=== PATIENT | male | born 1970 | race Caucasian/White ===

== ENCOUNTER 2017-06-13 17:44 | Emergency (ER) | payer SELFPAY ==
[~2017-06-13] VITALS: Ht 175.3 cm; Wt 108.9 kg
--- NOTE | ~2017-06-13 | CT71 ---
[facility]. [facility] A Service of [facility] & [facility] RADIOLOGY TEXT RESULTS PATIENT: CEM PENA LOCATION: SED : 70 UNIT #: [id number] AGE: [address]: ONESIMO GIBSON SEX: M ORDER DR: [id number] [place] [id number] E MR#: [id number] Acc #: [id number] NAME: CEM PENA : 1970 SEX: M STUDY DATE/TIME: 06/13/2017 18:35 UNIT: SED ROOM: STUDY DESCRIPTION: CT Head Wo Contrast Attending Physician: Onesimo Gibson Ordering Physician: Onesimo Gibson Primary Care Physician: Anna Marie Llamas A.P.R.N. MEDICAL IMAGING REPORT This report is preliminary unless electronic signature is present. EXAM Head CT without contrast, 06/13/2017. HISTORY Dizziness and vomiting and frontal headache for 2 days. FINDINGS Axial noncontrast images were obtained from the skull base to the vertex. This CT exam was performed with one or more of the following radiation dose reduction techniques: automatic exposure control, adjustment of mA and/or kV according to patient size, and iterative reconstruction. Ventricular size and configuration are normal. There is no evidence of acute infarct or hemorrhage. There are no extraaxial fluid collections. No mass lesion or mass effect is seen. There are no skull fractures. IMPRESSION Normal noncontrast head CT. Dictated by... Fausto Jimenez M.D. THIS IS AN ELECTRONICALLY VERIFIED REPORT Fausto Jimenez M.D. at 06/14/2017 2:16 PM KRT/talon TD: 06/14/2017 09:47 JOB #: [id number] MEDICAL IMAGING REPORT Page 1 of 1
--- NOTE | ~2017-06-13 | EKG ---
PATIENT: CEM PENA UNIT #: [id number] Ventricular Rate: 55 BPM Atrial Rate: 55 BPM P-R Interval: 174 ms QRS Duration: 78 ms Q-T Interval: 428 ms QTC Calculation(Bezet): 409 ms P Dacono: 55 degrees Calculated R [place]acono: 17 degrees Calculated T Dacono: 33 degrees Diagnosis Line: Sinus bradycardia Diagnosis Line: Otherwise normal ECG Diagnosis Line: When compared with ECG of 29-MAY-2014 20:15, Diagnosis Line: No significant change was found Diagnosis Line: Confirmed by GALA DAS MD ([id number]) on Diagnosis Line: 06/15/2017 8:23:37 AM INTERPRETING MD: THIAGO BLANK
--- NOTE | ~2017-06-13 | CT17 ---
[facility] A Service of [facility] RADIOLOGY TEXT RESULTS PATIENT: CEM PENA LOCATION: SED : [birth year] UNIT #: [id number] AGE: [address]: ONESIMO GIBSON SEX: M ORDER DR: [id number] [place] [id number] E MR#: [id number] Acc #: [id number] NAME: CEM PENA : 1970 SEX: M STUDY DATE/TIME: 06/13/2017 19:10 UNIT: SED ROOM: STUDY DESCRIPTION: CT Angio Head Attending Physician: Onesimo Gibson Ordering Physician: Onesimo Gibson Primary Care Physician: Anna Marie Llamas A.P.R.N. MEDICAL IMAGING REPORT This report is preliminary unless electronic signature is present. EXAM CT angiogram head and neck. HISTORY Dizziness and vomiting for two days. COMMENTS CT angiography of the head and neck vessels performed during the intravenous administration of 100 mL of Isovue 370 with imaging acquired in the axial plane followed by multiple reconstructed and reformatted images for the purpose of 3-D CT angiography of the head and neck vessels. This CT exam was performed with one or more of the following radiation dose reduction techniques: automatic exposure control, adjustment of mA and/or kV according to patient size, and iterative reconstruction. COMPARISON There is an earlier head CT. FINDINGS CT angiogram neck: There is origin of the left vertebral artery from the aortic arch. There is no hemodynamically significant narrowing suspected of great vessel origins form the arch. By NASCET criteria 0% stenosis at the right carotid bifurcation. The right carotid system is widely patent. There is some kinking/tortuosity of the cervical internal carotid artery on the right. By NASCET criteria there is 0% stenosis at the left carotid bifurcation and then there is some kinking/tortuosity of the left internal carotid artery mid portion cervical. Bilaterally the carotid siphons are widely patent. Left vertebral artery is patent through the neck and contributes to be basilar. The right vertebral artery is patent thought the neck and [facility] A Service [facility] RADIOLOGY TEXT RESULTS PATIENT: CEM PENA LOCATION: [place] : [birth year] UNIT #: [id number] AGE: [address]: ONESIMO GIBSON SEX: M ORDER DR: contributes to the basilar. The vertebral system is fairly codominant. Evaluation of the intracranial circulation shows no intracranial vascular cutoff. No focal central stenosis. There is an anterior communicating artery present. No posterior communicator of significant size is seen on either side. No intracranial aneurysm is suspected allowing for the technical limitation CT angiography for evaluation of granulation at the level of the skull base. Dural venous sinuses are grossly patent. IMPRESSION 1. By NASCET criteria 0% stenosis is suspected at either carotid bifurcation. Both vertebral arteries are patent and both contribute to the basilar with a fairly balance system. 2. There is no intracranial vascular cutoff or focal central stenosis. There is no evidence on CT angiography for intracranial aneurysm, though CT angiogram is limited for evaluation of small aneurysms at the level of the skull base at this institution. 3. If there is continued clinical concern for acute CVA, and the patient is a candidate, consider correlation with a follow-up MRI. Dictated by... Angela Nazario M.D. THIS IS AN ELECTRONICALLY VERIFIED REPORT Angela Nazario M.D. at 06/14/2017 7:04 PM ERUM/beth TD: 06/14/2017 10:17 JOB #: [id number] MEDICAL IMAGING REPORT Page 1 of 1
[~2017-06-13 17:44] MED LIST: ADVIL200 M3 PO; ANTI-DIARRHEAL2 M1 PO; FLEXERIL10 MG PO; PHENERGAN25 M1 PO; PREDNISONE10 MG/DOSE PO; VICODIN 5/1 TAB 5/50 PO; VOLTAREN75 MG PO
[2017-06-13] MEDS ORDERED: NO MEDICATIONS (17:46)
[2017-06-13 18:27] LABS: BASOPHIL# 0.1 X10e3 (0-0.3); BASOPHIL% 0.9 % (0-2.5); DIFF IND NO; EOSINOPHIL# 0.1 X10e3 (0-0.7); EOSINOPHIL% 0.8 % (0.0-7.0); HEMOGLOBIN 10.8 gm/dL (13.0-16.0); LYMPHOCYTE# 2.6 X10e3 (1.0-3.5); LYMPHOCYTE% 29.9 % (17.0-45.0); MEAN CELL VOLUME 64.7 FL (83-96); MEAN CORPUSCULAR HEMOGLOBIN 19.5 PG (28-34); MEAN CORPUSCULAR HGB CONC 30.1 g/dL (30-36); MEAN PLATELET VOLUME 9.8 FL (6.5-11.5); MONOCYTE# 0.8 X10e3 (0-1.0); MONOCYTE% 8.7 % (3.0-12.0); NEUTROPHIL# 5.3 X10e3 (1.5-7.1); NEUTROPHIL% 59.7 % (40-75); PLATELET COUNT 122 X10e3 (140-420); RED BLOOD COUNT 5.56 X10e (3.90-5.60); RED CELL DISTRIBUTION WIDTH 19.4 % (11.0-15.5); WHITE BLOOD COUNT 8.8 X10e3 (4.0-10.5)
[2017-06-13 18:41] LABS: POC - CKMB <1.0 ng/mL (0.0-7.9); POC - MYOGLOBIN 45.1 ng/mL (0.0-169.0); POC - TROPONIN <0.05 ng/mL (<=0.05)
[2017-06-13 18:44] LABS: ALBUMIN SERUM 4.4 g/dL (3.5-5.0); BILIRUBIN, DIRECT 0.1 mg/dL (0.0-0.2); BILIRUBIN,INDIRECT 0.2 mg/dL (0.0-0.9); BILIRUBIN,TOTAL 0.3 mg/dL (0.2-2.0); BUN/CREATININE RATIO 15.55; CALCIUM SERUM 9.1 mg/dL (8.4-10.2); CREATININE SERUM 0.9 mg/dL (0.6-1.4); GLOM FILT RATE Estimated 102.1 mL/min (>60); POTASSIUM 4.1 mmol/L (3.5-5.1); PROTEIN TOTAL SERUM 7.9 g/dL (6.0-8.3)
== END 2017-06-14 00:48 ==
LOC: SED 17:44
PROVIDERS: Nurse Practitioner
DX: D64.9 Anemia, unspecified (principal); R27.8 Other lack of coordination; Z87.891 Personal history of nicotine dependence
CPT/HCPCS: 36415; 70450; 70496; 70498; 80048; 80076; 82553; 82947; 83874; 84484; 85025; 93005; 96374; 99285; J1885; Q9967